=== PATIENT | male | born 1950 | race Two or more races ===

== ENCOUNTER 2018-01-16 10:00 | Outpatient (CLI) | payer OTHER | END 2018-01-16 11:00 | disposition home or self-care (01) | LOC: RAD 10:00 | DX: S83.200A Bucket-handle tear of unspecified meniscus, current injury, right knee, initial encounter (principal); J44.0 Chronic obstructive pulmonary disease with (acute) lower respiratory infection ==

== ENCOUNTER 2018-01-23 09:49 | Outpatient (CLI) | payer OTHER | END 2018-01-23 09:53 | disposition home or self-care (01) | LOC: MRI 09:49 | DX: S83.200A Bucket-handle tear of unspecified meniscus, current injury, right knee, initial encounter (principal) | CPT/HCPCS: 73721 ==

== ENCOUNTER 2018-11-22 08:35 | Outpatient (CLI) | payer OTHER | END 2018-11-22 08:37 | disposition home or self-care (01) | LOC: RAD 08:35 | DX: H25.011 Cortical age-related cataract, right eye (principal); Z98.41 Cataract extraction status, right eye ==

== ENCOUNTER 2021-05-26 09:29 | Outpatient (CLI) | payer OTHER | END 2021-05-26 09:39 | disposition home or self-care (01) | LOC: RAD 09:29 | PROVIDERS: ATTEND General Practice | DX: J44.0 Chronic obstructive pulmonary disease with (acute) lower respiratory infection (principal) ==

== ENCOUNTER 2021-06-08 08:14 | Outpatient (CLI) | payer OTHER | END 2021-06-08 08:15 | disposition home or self-care (01) | LOC: LAB 08:14 → EKG 08:14 → LAB 08:15 | PROVIDERS: ATTEND Ophthalmology | DX: H25.012 Cortical age-related cataract, left eye (principal); I10 Essential (primary) hypertension ==

== ENCOUNTER 2022-02-24 09:34 | Outpatient (CLI) | payer OTHER | END 2022-02-24 09:41 | disposition home or self-care (01) | LOC: RAD 09:34 | PROVIDERS: ATTEND General Practice | DX: J44.9 Chronic obstructive pulmonary disease, unspecified (principal); M15.9 Polyosteoarthritis, unspecified ==